=== PATIENT | male | born 1990 | race Caucasian/White ===

== ENCOUNTER 2016-04-18 16:04 | Emergency (ER) | payer BC ==
[~2016-04-18] VITALS: Ht 185.4 cm; Wt 81.8 kg
[~2016-04-18 16:04] MED LIST: ANTIVERT 25MG25 MG PO; DOXYCYCLINE 10100 MG PO; ZOFRAN 4MG T4 MG/TAB PO
[2016-04-18 16:11] VITALS: TEMP 98
[2016-04-18] MEDS ORDERED: PREDNISONE20 MG PO (17:27)
[2016-04-18] MEDS ORDERED: AMOXICILLIN 8751 TAB PO (17:28)
[2016-04-18 17:45] VITALS: BP 149/84; PULSE 64
== END 2016-04-18 17:45 | disposition home or self-care (01) ==
LOC: COL.ER 16:04
DX: J01.90 Acute sinusitis, unspecified (principal)

== ENCOUNTER 2016-06-28 18:19 | Emergency (ER) | payer BC ==
[~2016-06-28] VITALS: Ht 185.4 cm; Wt 77.3 kg
[~2016-06-28 18:19] MED LIST changes: +AMOXICILLIN 8751 TAB PO; +PREDNISONE20 MG PO
[2016-06-28 18:21] VITALS: BP 147/81; PULSE 99; TEMP 97.6
[2016-06-28] MEDS ORDERED: NORCO 325 MG-51 TAB PO (19:35)
== END 2016-06-28 19:39 | disposition home or self-care (01) ==
LOC: COL.ER 18:19
DX: S93.491A Sprain of other ligament of right ankle, initial encounter (principal); X50.1XXA Overexertion from prolonged static or awkward postures, initial encounter; Y93.67 Activity, basketball

== ENCOUNTER 2016-07-10 16:50 | Emergency (ER) | payer BC ==
[~2016-07-10] VITALS: Ht 185.4 cm; Wt 79.5 kg
[~2016-07-10 16:50] MED LIST changes: +NORCO 325 MG-51 TAB PO
[2016-07-10 16:58] VITALS: TEMP 98
[2016-07-10 18:26] LABS: BASO % 0.3 % (0.0-2.0); EOS # 0.1 (0.0-0.7); EOS % 1.1 % (0-4.0); GRAN # 4.2 (1.4-6.5); HEMOGLOBIN 15.4 g/dl (13.5-18.0); LYMPH # 1.7 (1.2-3.4); LYMPH % 26.6 % (20.0-51.0); MEAN CELL VOLUME 89 fl (80.0-100.0); MEAN CORPUSCULAR HEMOGLOBIN 31 pg (27.0-31.0); MEAN CORPUSCULAR HGB CONC 35 g/dl (33.0-37.0); MEAN PLATELET VOLUME 8.7 fl (7.4-10.4); MONO # 0.5 (0.1-0.6); MONO % 7.7 % (1.7-9.3); PLATELET COUNT 246 K/mm3 (130-400); RED BLOOD COUNT 4.97 M/mm3 (4.20-5.60); REDCELL DISTRIBUTION WIDTH-CV 11.9 % (11.5-14.5); WHITE BLOOD COUNT 6.5 K/mm3 (4.8-10.8)
[2016-07-10 18:31] LABS: ADJUSTED CALCIUM 8.8 mg/dL (8.4-10.2); ALANINE AMINOTRANSFERASE 56 U/L (21-72); ALKALINE PHOSPHATASE 39 U/L (50-136); ANION GAP 13 mmol/L (7-16); BILIRUBIN,TOTAL 0.8 mg/dL (0.0-1.0); BLOOD UREA NITROGEN 16 mg/dL (9-20); CALCIUM 9.6 mg/dL (8.4-10.2); CARBON DIOXIDE 32 mmol/L (22-30); CHLORIDE 96 mmol/L (98-107); CREATININE, serum 0.83 mg/dL (0.66-1.25); GLUCOSE 95 mg/dL (74-106); SODIUM 141 mmol/L (137-145); TOTAL PROTEIN 8.1 gm/dL (6.4-8.2)
[2016-07-10 18:51] LABS: TROPONIN-I < 0.012 ng/mL (0.000-0.034)
[2016-07-10 19:43] VITALS: BP 123/80; PULSE 74
== END 2016-07-10 19:47 | disposition home or self-care (01) ==
LOC: COL.ER 16:50
PROVIDERS: Nurse Practitioner
DX: R07.9 Chest pain, unspecified (principal)

== ENCOUNTER 2016-12-05 19:18 | Emergency (ER) | payer OTHER ==
[~2016-12-05] VITALS: Ht 185.4 cm; Wt 75.0 kg
[2016-12-05 19:34] VITALS: BP 157/90; TEMP 98.3
[2016-12-05 22:05] LABS: PH 7 (5-8); SQUAMOUS EPITHELIAL None Seen /hpf; URINE APPEARANCE Hazy; URINE BACTERIA Rare /hpf; URINE BILIRUBIN Negative (NEGATIVE); URINE BLOOD Negative (NEGATIVE); URINE COLOR Yellow; URINE GLUCOSE Negative (NEGATIVE); URINE KETONE 1+ (NEGATIVE); URINE RBC None Seen /hpf; URINE UROBILINOGEN Negative (NEGATIVE); URINE WBC 0-2 /hpf
[2016-12-05 22:25] LABS: CHLAMYDIA/TRACH by PCR Male NOT DETECTED; Neisseria Gon by PCR Male NOT DETECTED
[2016-12-05 22:59] VITALS: PULSE 74
== END 2016-12-05 22:59 | disposition home or self-care (01) ==
LOC: COL.ER 19:18
PROVIDERS: Emergency Medicine
DX: R30.0 Dysuria (principal)